=== PATIENT | female | born 1960 | race Hispanic/Latino ===

== ENCOUNTER → 2020-10-28 | Outpatient (CLI) | payer OTHER | END | disposition home or self-care (01) | LOC: OIH 12:48 | PROVIDERS: ATTEND Internal Medicine Cardiovascular Disease | DX: Z13.6 Encounter for screening for cardiovascular disorders (principal) | CPT/HCPCS: 75571 ==

== ENCOUNTER → 2022-09-07 | Outpatient (CLI) | payer OTHER ==
[~2022-09-07] MED LIST: REGADENOSON 0.4 MG/5 ML PF SYG IVP ONE
== END | disposition home or self-care (01) ==
LOC: SHCH 08:09
PROVIDERS: ATTEND Internal Medicine Cardiovascular Disease
DX: R07.9 Chest pain, unspecified (principal); I10 Essential (primary) hypertension
CPT/HCPCS: 78452; 93017; J2785; A9500 ×2; 96374

== ENCOUNTER 2022-11-02 08:11 | Day surgery (SDC) | payer OTHER ==
[2022-10-29 12:04] VITALS: BP 107/69
[2022-10-29 12:20] LABS: BASOPHILS % (AUTO) 0.6 % (0.0-5.0); EOSINOPHILS % (AUTO) 3.3 % (0.0-8.0); HEMATOCRIT 34.2 % (36-48); LYMPHOCYTES % (AUTO) 18.3 % (21.0-51.0); MEAN CORPUSCULAR HEMOGLOBIN 29.4 pg (27.0-33.0); MEAN CORPUSCULAR HGB CONC 32.5 g/dL (32.0-36.0); MEAN CORPUSCULAR VOLUME 90.7 fL (79-99); MONOCYTES % (AUTO) 5.9 % (3.0-13.0); NEUTROPHILS % (AUTO) 71.5 % (40.0-77.0); PLATELET COUNT (AUTO) 214 K/uL (130-400); RED BLOOD CELL COUNT(AUTO) 3.77 MIL/uL (4.00-5.50); RED CELL DISTRIBUTION WIDTH 12.8 % (11.0-15.5); WHITE BLOOD COUNT (AUTO) 5.5 K/uL (4.8-10.8)
[2022-10-29 12:29] LABS: CREATININE 1.3 mg/dL (0.5-1.5); POTASSIUM 4.7 mmol/L (3.5-5.1)
[2022-10-29 12:33] LABS: PROTHROMBIN TIME 10.9 SEC (9.6-11.6)
[2022-10-29 12:34] LABS: PARTIAL THROMBOPLASTIN TIME 29.5 SEC (26.3-35.5)
[2022-10-29 12:42] LABS: B-TYPE NATRIURETIC PEPTIDE 82 pg/mL (0-100)
[2022-11-02] VITALS (10 sets, daily range): BP systolic 100–136; BP diastolic 60–85
[~2022-11-02] VITALS: Ht 170.2 cm; Wt 108.3 kg
[~2022-11-02 08:11] MED LIST changes: +0.9% NACL 500ML IV.SOLN 500 ML IV SCH; +AEC81 PO; +APIX5TAB PO; +ATEN25TA PO; +CETI-89 PO; +CLON0.5T4 PO; +LANS15CA14 PO; +LOSA1TAB54 PO; -REGADENOSON 0.4 MG/5 ML PF SYG IVP ONE; +ROSU10TA28 PO; +SERT-440 PO
[2022-11-02] MEDS ORDERED: 0.9%NACL 1000ML 1,000 ML IV ONE (08:43)
[2022-11-02] MEDS ORDERED: SODIUM BICARB 50MEQ 50ML VIAL 50 ML ONE (14:25)
[2022-11-02] MEDS ORDERED: IOHEXOL 350 MG/ML 100ML INFUS..BTL IV ONE (14:25)
[2022-11-02] MEDS ORDERED: IOHEXOL-350 50ML VIAL IV ONE (14:25)
[2022-11-02] MEDS ORDERED: LIDOCAINE HCL 400MG/20ML VIAL ONE (14:25)
[2022-11-02] MEDS ORDERED: NICARDIPINE 25MG INJ IV ONE (14:26)
[2022-11-02] MEDS ORDERED: HEPARIN 10,000 UNIT/10ML (1,000 UNIT/ML) VIAL ONE (14:26)
[2022-11-02] MEDS ORDERED: NITROGLYCERIN 50MG VIAL ONE (14:26)
[2022-11-02] MEDS ORDERED: MIDAZOLAM HCL 1 MG/ML 2ML VIAL ONE ×3 (14:54→15:34)
[2022-11-02] MEDS ORDERED: MEPERIDINE-PF 25 MG/ML SYG ONE ×3 (14:54→15:35)
[2022-11-02] MEDS ORDERED: ASPIRIN 81MG CHEW TAB ONE (15:46)
[2022-11-02] MEDS ORDERED: CLOPIDOGREL 300MG TAB ONE (15:46)
[2022-11-02] MEDS ORDERED: 0.9%NACL 1000ML 1,000 ML IV SCH (16:00)
== END 2022-11-02 20:26 | disposition home or self-care (01) ==
LOC: DAH 08:11
PROVIDERS: ATTEND Internal Medicine Cardiovascular Disease
DX: I25.119 Atherosclerotic heart disease of native coronary artery with unspecified angina pectoris (principal); I10 Essential (primary) hypertension; I48.0 Paroxysmal atrial fibrillation; I42.9 Cardiomyopathy, unspecified; Z82.49 Family history of ischemic heart disease and other diseases of the circulatory system; Z83.3 Family history of diabetes mellitus; Z79.01 Long term (current) use of anticoagulants; Z79.899 Other long term (current) drug therapy; Z98.890 Other specified postprocedural states
CPT/HCPCS: 80048; 83880; 85025; 85610; 85730; 36415; 71045; 93005; 85347; 93458; C9600; C1769 ×2; C1887; C1894 ×2; A4649; C1874; J3490 ×4; J7030; J1644 ×2; J2250 ×3; J2175 ×3; Q9967; A4215; A4222; A4221; A4663; A4216; A4606; Q9965; A4223 ×3; 99156; 99157

== ENCOUNTER 2024-09-18 05:57 | Day surgery (SDC) | payer OTHER ==
[2024-09-15 14:26] LABS: BASOPHILS # (AUTO) 0.02 K/uL (0.00-0.20); BASOPHILS % (AUTO) 0.3 % (0.0-5.0); EOSINOPHILS % (AUTO) 1.7 % (0.0-8.0); HEMATOCRIT 36.7 % (36-48); IMMATURE GRANULOCYTE ABSOLUTE 0.01 K/uL (0-1); LYMPHOCYTES # (AUTO) 0.8 K/uL (1.0-4.8); LYMPHOCYTES % (AUTO) 14.1 % (21.0-51.0); MEAN CORPUSCULAR HEMOGLOBIN 29.8 pg (27.0-33.0); MEAN CORPUSCULAR VOLUME 90.4 fL (79-99); MONOCYTES # (AUTO) 0.4 K/uL (0.1-1.0); MONOCYTES % (AUTO) 6.3 % (3.0-13.0); NEUTROPHILS # (AUTO) 4.5 K/uL (1.8-7.7); NEUTROPHILS % (AUTO) 77.4 % (40.0-77.0); PLATELET COUNT (AUTO) 237 K/uL (130-400); RED BLOOD CELL COUNT(AUTO) 4.06 MIL/uL (4.00-5.50); RED CELL DISTRIBUTION WIDTH 12.8 % (11.0-15.5); WHITE BLOOD COUNT (AUTO) 5.8 K/uL (4.8-10.8)
[2024-09-15 14:43] LABS: CREATININE 1.3 mg/dL (0.5-1.0); POTASSIUM 4.3 mmol/L (3.5-5.1)
[2024-09-15 14:47] LABS: INR 1.03 (0.85-1.15); PROTHROMBIN TIME 10.9 SEC (9.6-11.6)
[2024-09-15 14:48] LABS: PARTIAL THROMBOPLASTIN TIME 30.6 SEC (26.3-35.5)
[2024-09-15 14:51] VITALS: BP 158/95; PULSE 72; RESP 18; TEMP 98
--- NOTE | 2024-09-15 15:10 | EKG ---
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1960 Requested By: Barry BEATTY Order Number: [id number] Reading MD: Damon Mathis Measurements Intervals [place] Rate: 70 P: 0 NV: 0 QRS: -58 QRSD: 139 T: -10 QT: 419 QTc: 453 Interpretive Statements Atrial pacing Nonspecific IVCD with LAD Left ventricular hypertrophy Anterolateral infarct, age indeterminate Compared to ECG 10/29/2022 11:48:08 Myocardial infarct finding now present Atrial-paced complex(es) or rhythm no longer present First degree AV block no longer present ST (T wave) deviation no longer present Electronically Signed On 09-17-2024 13:07:38 CDT by Damon Mathis Please click the below link to view image of tracing.
[2024-09-18] VITALS (10 sets, daily range): BP systolic 103–142; BP diastolic 65–79; PULSE 60–71; RESP 10–18; TEMP 97–97.2
[~2024-09-18] VITALS: Ht 172.7 cm; Wt 112.9 kg
[~2024-09-18 05:57] MED LIST changes: -0.9% NACL 500ML IV.SOLN 500 ML IV SCH; -AEC81 PO; +ATOR10TA69 PO; -CETI-89 PO; +CLOP75TA32 PO; +FAMO40TA7 PO; -LANS15CA14 PO; -ROSU10TA28 PO
[2024-09-18] MEDS: 0.9%NACL 1000ML 1,000 ML IV SCH (07:01)
[2024-09-18] MEDS ORDERED: ceFAZolin SODIUM 1 GM VIAL ONE (07:09)
[2024-09-18] MEDS ORDERED: IOHEXOL-350 50ML VIAL IV ONE (07:09)
[2024-09-18] MEDS ORDERED: LIDOCAINE HCL 1% MDV 50ML VIAL ONE (07:09)
[2024-09-18] MEDS ORDERED: BUPIvacaine/PF 0.25% 30ML VIAL IJ ONE (07:09)
[2024-09-18] MEDS ORDERED: MIDAZOLAM HCL 1 MG/ML 2ML VIAL ONE ×5 (07:36→08:55)
[2024-09-18] MEDS ORDERED: FENTanyl CITRate PF 50 MCG/1 ML 2ML VIAL ONE ×2 (07:36→08:54)
[2024-09-18] MEDS ORDERED: DiphenhydrAMINE HCL 50 MG/ML VIAL ONE (08:07)
[2024-09-18] MEDS ORDERED: acetaMINOPHEN WITH coDEINE 1 TAB TAB PO PRN ×2 (09:30)
--- NOTE | 2024-09-18 12:32 | NUR ---
Patient without complaint. Paced rhythm at 60/minute. Bedside monitorintact. Sats 98% ora. Denies c/o pain or problem. Ate 80% of Lunch. [employer] rep to see Patient. Card given to Daughter. She took picture of card and placed it into Patients wallet in purse. Dressing to chest wall clean, dry and intact. Pending Dr. Abbott to speak with them. Message left with cell phone VM and office. CXR and ABX both pending at 14:00 pm. Bedrest remains until 13:22 pm. Daughter at bedside appearing supportive. Call light in reach.
[2024-09-18] MEDS: ceFAZolin SODIUM 1 GM VIAL ONE (12:54)
--- NOTE | 2024-09-18 13:52 | NUR ---
Full and complete discharge instructions given to Patient and Family both verbally and in writing. Explained Cardiac PPM upgrade procedure precautions and follow up. All questions answered. PIV removed with catheter tip intact. Groin site and clean, dry without any sign of bleeding, bruising or hematoma. Sling intact. IV ABX administered as per orders. CXR completed. Will forward to Dr. Abbott as soon as on system. Addendum: 09/18/24 at 1402 by SHILO CERDA RN RN Pressure dressing removed pre discharge. CXR sent to Dr. Abbott. Addendum: 09/18/24 at 1419 by SHILO CERDA RN RN Correcting error above. PPM site clean and dry with out sign or bleeding or hematoma. CXR sent to Dr. Abbott. Pending return call. Informed him that Patient and Daughter wanted to be updated on procedure. Reported off in full to Nurse, Christiano CHAVEZ.
[2024-09-18] MEDS ORDERED: ceFAZolin SODIUM 1 GM VIAL IVPB ONE (14:00)
--- NOTE | 2024-09-18 14:49 | HMCIMG ---
Exam Type: CHEST 1VW Clinical Information: s/p lbba lead insertion Comparison: None Findings: The lungs are clear of infiltrates. The heart is enlarged in size. The bony and soft tissue structures of the chest are unremarkable. Left cardiac pacemaker is noted with leads in place. Impression: Clear lungs.
== END 2024-09-18 15:00 | disposition home or self-care (01) ==
LOC: DAH 05:57
PROVIDERS: ATTEND Internal Medicine Cardiovascular Disease
DX: Z45.010 Encounter for checking and testing of cardiac pacemaker pulse generator [battery] (principal); R00.1 Bradycardia, unspecified; I10 Essential (primary) hypertension; I51.7 Cardiomegaly; I25.2 Old myocardial infarction; I42.9 Cardiomyopathy, unspecified; I48.0 Paroxysmal atrial fibrillation; Z79.01 Long term (current) use of anticoagulants; Z79.899 Other long term (current) drug therapy; Z79.82 Long term (current) use of aspirin; Z95.5 Presence of coronary angioplasty implant and graft; Z82.49 Family history of ischemic heart disease and other diseases of the circulatory system; Z83.3 Family history of diabetes mellitus
CPT/HCPCS: 80048; 85025; 85610; 85730; 36415; 93005; 33228; 33225; 71045; C1898; C1769; C1785; C1894; J1200; J3010 ×2; J0690 ×2; J0665; J2250 ×5; J3490; Q9967; A4215; A4222; A4221; A4663; A4216; A4606; A4223 ×3; 33207; 99156; 99157

== ENCOUNTER → 2024-10-23 | Outpatient (CLI) | payer OTHER ==
--- NOTE | 2024-10-24 09:26 | HMCIMG ---
MAMMO SCREENING BILATERAL HISTORY: Screening mammogram. COMPARISON: None TECHNIQUE: Bilateral screening mammogram with CAD was performed with craniocaudal and mediolateral oblique projections. FINDINGS: There are scattered areas of fibroglandular density. There is no evidence of a dominant mass, or suspicious microcalcification. There is no evidence of nipple retraction or skin thickening. IMPRESSION: 1. No dominant mass is seen to suggest a malignant process. Patient was entered into a reminder system with a target due date for their next mammogram. BI-RADS: CATEGORY 2: BENIGN FINDINGS Recommend monthly self breast exam as well as annual clinical examination. A negative x-ray should not delay biopsy if a dominant or clinically suspicious mass is present, since 8-10% of cancers are not identified by mammography. Dense breasts particularly, may obscure an underlying neoplasm. Some of these may be detected clinically and therefore, clinical examination is an essential part of breast evaluation.
== END | disposition home or self-care (01) ==
LOC: RAH 13:26
PROVIDERS: ATTEND Internal Medicine
DX: Z12.31 Encounter for screening mammogram for malignant neoplasm of breast (principal); R92.323 Mammographic fibroglandular density, bilateral breasts
CPT/HCPCS: 77067